=== PATIENT | female | born 1960 | race Caucasian/White ===

== ENCOUNTER 2021-06-04 12:22 | Emergency (ER) | payer BC ==
--- NOTE | 2021-06-04 13:57 | EDM.PDOC ---
ED HPI GENERAL MEDICAL PROBLEM - General Chief Complaint: Gastrointestinal Problem Stated Complaint: STOMACH PAIN,BLACK STOOL Time Seen by Provider: 06/04/21 13:34 Source of Information: Reports: Patient History Limitations: Reports: No Limitations - History of Present Illness INITIAL COMMENTS - FREE TEXT/NARRATIVE: HISTORY AND PHYSICAL: History of present illness: Patient is a 61-year-old female who presents to the emergency room with complaints of lower abdominal pain and black stools. She states yesterday she started to have some low abdominal pain/cramping and this morning had a bowel movement after 2 days of not having any. She felt somewhat constipated prior to having the bowel movement. When she noticed her stool was black she informed her family member who is a nurse. They recommended she come to the emergency room for evaluation. She continues to have some bilateral low abdominal discomfort which she describes as mild. Patient denies any fever, chills, headache, change in vision, syncope or near syncope. Denies any chest pain, back pain, shortness of breath or cough. Denies any abdominal pain, nausea, vomiting, diarrhea, constipation or dysuria. Has not noted any blood in urine or stool. Patient has been eating and drinking appropriately. No recent travel or sick contacts. Review of systems: As per history of present illness and below otherwise all systems reviewed and negative. Past medical history: As per history of present illness and as reviewed below otherwise noncontributory. Surgical history: As per history of present illness and as reviewed below otherwise noncontributory. Social history: See social history for further information Family history: As per history of present illness and as reviewed below otherwise noncont ributory. Physical exam: General: Well developed and well nourished. Alert and orientated x 3. Nontoxic in appearance and in no acute distress. Vital signs are stable and have been reviewed by me. Nursing notes were reviewed. HEENT: Atraumatic, normocephalic, pupils equal and reactive bilaterally, negative for conjunctival pallor or scleral icterus, mucous membranes moist, TMs normal bilaterally, throat clear, neck supple, nontender, trachea midline. No drooling or trismus noted. No meningeal signs. No hot potato voice noted. Lungs: Clear to auscultation bilaterally. No wheezes, rales, or rhonchi. Chest nontender. Normal work of breathing, no accessory muscles used. Heart: S1S2, regular rate and rhythm without overt murmur, gallops, or rubs. No JVD. No peripheral edema Abdomen: Soft, nondistended, nontender. Normoactive bowel sounds. Negative for masses or costovertebral tenderness. Pelvis: Stable nontender. Genitourinary/Rectal: External hemorrhoids are noted without bleeding. Good rectal tone. Patient does have dark-colored stool although Hemoccult negative. Patient tolerated well. Skin: Intact, warm, dry. No lesions or rashes noted. Hematologic: No petechiae or purpra. Mucosa appropriate color and normal nail bed color and refill. Extremities: Atraumatic, moves all extremities per self without difficulty or deficits, negative for cords or calf pain. Neurovascular unremarkable. Neuro: Awake, alert, oriented. Cranial nerves II through XII unremarkable. Cerebellum unremarkable. Motor and sensory unremarkable throughout. Exam nonfocal. Psychiatric: Mood and affect are appropriate. Normal thought process. Answering questions appropriately. Please note that the patient was seen and evaluated during the 2019 SARS-CoV-2 novel coronavirus pandemic period. Community viral transmission is ongoing at time of this encounter and the emergency department is operating under pandemic response procedures. Medical Decision Making: Patient is a 61-year-old female who presents to the emergency room with complaints of low abdominal pain and dark stool. She states initially she thought she was constipated as she has not had a bowel movement in 2 days. Today when she went it was dark in color and a family member was concerned it could be bloody. Physical exam reveals mild abdominal tenderness to lower quadrants bilaterally. Rectal exam is negative for Hemoccult. We will do basic lab work and possibly CT of abdomen and pelvis. Lab work is unremarkable. CT of the abdomen and pelvis shows and acute diverticulitis of the distal descending colon. No evidence of perforation. 4 mm pulmonary nodule right middle lobe. If patient is at high risk for malignancy consider follow-up chest CT in 12 months. I have talked with the patient about today's findings, in addition to providing specific details for plan of care. Patient feels she would do well at home as she has not had any fever, chills, severe abdominal pain, nausea or vomiting. Reassessment at the time of disposition demonstrates that the patient is in no acute distress. The patient is stable for discharge and counseling was provided. We discussed in great detail signs and symptoms that would prompt them to return to the Emergency Department (fevers, increased abdominal pain, unable to keep abx down, etc..). Medication, follow up and supportive care measures were reviewed and discussed. Voices understanding and is agreeable to plan of care. Denies any further questions or concerns at this time. Diagnostics: CBC, CMP, CT abd/pelvis Therapeutics: IV fluids Prescription: Augmentin TID, Zofran, Tramadol Impression: Diverticulitis Plan: 1. You were evaluated today on an emergent basis. Your lab work is within normal limits. Your CT scan shows an acute diverticulitis which will require treatment with antibiotics. There was an incidental finding of a 4 mm pulmonary nodule in your right middle lobe of your chest. If you are a high risk patient (smoker, familial history/person history of cancer) you should get a follow-up CT with your primary care provider. You can use Miralax to keep your stools soft and regular. At this time, your stool is dark in color, but tested negative for blood. Continue to monitor closely (black tarry, maroon, bright red) 2. You can alternate Tylenol and ibuprofen as needed for pain and fever management. 3. We encourage you to follow up with your primary care provider and/or recommended specialist in the next few days for re-evaluation and further care/management. 4. If your symptoms should worsen, new symptoms develop or any of the signs and symptoms we discussed should arise please return to the emergency room or call 911 (if needed). Definitive disposition and diagnosis as appropriate pending reevaluation and review of above. Left Upper Abdomen Pain Score (Numeric/FACES): 2 - Related Data Allergies Allergy/AdvReac Type Severity Reaction Status Date / Time codeine Allergy Vomiting Verified 06/04/21 13:37 Home Meds: Home Meds Amoxicillin/Clavulanate K [Augmentin 875-125 MG] 1 tab PO BID 10 Days #20 tablet 06/04/21 [Rx] Ondansetron [Zofran ODT] 4 mg PO Q6H PRN #8 tab.dis 06/04/21 [Rx] Propranolol [Inderal LA 24 Hr] 80 mg PO 06/04/21 [History] Rizatriptan Benzoate [Rizatriptan] 06/04/21 [History] traMADol [Ultram] 50 mg PO Q4H PRN #15 tab 06/04/21 [Rx] Social & Family History - Tobacco Use Second Hand Smoke Exposure: No - Caffeine Use Caffeine Use: Reports: None - Recreational Drug Use Recreational Drug Use: No ED ROS GENERAL - Review of Systems Review Of Systems: Comprehensive ROS is negative, except as noted in HPI. ED EXAM, GI/ABD - Physical Exam Exam: See Below (See dictation) Course - Vital Signs Last Recorded V/S: Last Vital Signs Temp 96.7 F L 06/04/21 13:32 Pulse 80 06/04/21 17:04 Resp 18 06/04/21 17:04 BP 130/79 06/04/21 17:04 Pulse Ox 96 06/04/21 17:04 - Orders/Labs/Meds Labs: Laboratory Tests 06/04/21 06/04/21 Range/Units 14:18 14:18 WBC 7.11 (4.0-11.0) K/uL RBC 4.06 L (4.30-5.90) M/uL Hgb 13.0 (12.0-16.0) g/dL Hct 37.5 (36.0-46.0) % MCV 92.4 (80.0-98.0) fL MCH 32.0 (27.0-32.0) pg MCHC 34.7 (31.0-37.0) g/dL RDW Std Deviation 47.4 (28.0-62.0) fl RDW Coeff of Melissa 14 (11.0-15.0) % Plt Count 210 (150-400) K/uL MPV 9.60 (7.40-12.00) fL Neut % (Auto) 44.8 L (48.0-80.0) % Lymph % (Auto) 41.9 H (16.0-40.0) % Lares % (Auto) 11.4 (0.0-15.0) % Eos % (Auto) 1.5 (0.0-7.0) % Baso % (Auto) 0.4 (0.0-1.5) % Neut # (Auto) 3.2 (1.4-5.7) K/uL Lymph # (Auto) 3.0 H (0.6-2.4) K/uL Lares # (Auto) 0.8 (0.0-0.8) K/uL Eos # (Auto) 0.1 (0.0-0.7) K/uL Baso # (Auto) 0.0 (0.0-0.1) K/uL Nucleated RBC % 0.0 /100WBC Nucleated RBCs # 0 K/uL Sodium 140 (136-145) mmol/L Potassium 4.4 (3.5-5.1) mmol/L Chloride 104 (98-107) mmol/L Carbon Dioxide 29.3 (21.0-32.0) mmol/L BUN 12 (7.0-18.0) mg/dL Creatinine 0.8 (0.6-1.0) mg/dL Est Cr Clr Drug Dosing 66.45 mL/min Estimated GFR (MDRD) > 60.0 ml/min Glucose 103 (74-106) mg/dL Calcium 9.1 (8.5-10.1) mg/dL Total Bilirubin 1.1 H (0.2-1.0) mg/dL AST 27 (15-37) IU/L ALT 42 (14-63) IU/L Alkaline Phosphatase 107 (46-116) U/L Total Protein 7.5 (6.4-8.2) g/dL Albumin 3.1 L (3.4-5.0) g/dL Globulin 4.4 H (2.6-4.0) g/dL Albumin/Globulin Ratio 0.7 L (0.9-1.6) Meds: Medications Discontinued Medications Generic Name Dose Route Start Last Admin Trade Name Freq PRN Reason Stop Dose Admin Amoxicillin/Clavulanate Potassium 1 tab 06/04/21 16:34 06/04/21 17:04 Amoxicillin/Clavulanate K 875-125 Mg Tab PO 06/04/21 16:35 1 tab ONETIME ONE Administration Departure - Departure Time of Disposition: 16:40 Disposition: Home, Self-Care 01 Clinical Impression: Diverticulitis - Discharge Information Prescriptions: Amoxicillin/Clavulanate K [Augmentin 875-125 MG] 1 tab PO BID 10 Days #20 tablet traMADol [Ultram] 50 mg PO Q4H PRN #15 tab PRN Reason: Pain Ondansetron [Zofran ODT] 4 mg PO Q6H PRN #8 tab.dis PRN Reason: Nausea Instructions: Diverticulitis, [id number] Referrals: El Matta MD [Primary Care Provider] - Forms: ED Department Discharge Additional Instructions: The following information is given to patients seen in the emergency department who are being discharged to home. This information is to outline your options for follow-up care. We provide all patients seen in our emergency department with a follow-up referral. The need for follow-up, as well as the timing and circumstances, are variable depending upon the specifics of your emergency department visit. If you don't have a primary care physician on staff, we will provide you with a referral. We always advise you to contact your personal physician following an emergency department visit to inform them of the circumstance of the visit and for follow-up with them and/or the need for any referrals to a consulting specialist. The emergency department will also refer you to a specialist when appropriate. This referral assures that you have the opportunity for follow-up care with a specialist. All of these measure are taken in an effort to provide you with optimal care, which includes your follow-up. Under all circumstances we always encourage you to contact your private physician who remains a resource for coordinating your care. When calling for follow-up care, please make the office aware that this follow-up is from your recent emergency room visit. If for any reason you are refused follow-up, please contact the [facility] Emergency Department at and asked to speak to the emergency department charge nurse. [facility] [address] [place] [id number] [id number] Thank you for choosing the [facility] emergency department in [place] for your medical needs today. It was a pleasure caring for you. Today you were seen in the emergency department for dark stools and abdominal pain. Your prescription was electronically sent to: [place] [facility] 1. You were evaluated today on an emergent basis. Your lab work is within normal limits. Your CT scan shows an acute diverticulitis which will require treatment with antibiotics. There was an incidental finding of a 4 mm pulmonary nodule in your right middle lobe of your chest. If you are a high risk patient (smoker, familial history/person history of cancer) you should get a follow-up CT with your primary care provider. You can use Miralax to keep your stools soft and regular. At this time, your stool is dark in color, but tested negative for blood. Continue to monitor closely (black tarry, maroon, bright red) 2. It is important that you do mostly full liquid diet and try for a low fiber while you are having pain. You can alternate Tylenol and ibuprofen as needed for pain and fever management. Tramadol for moderate to severe pain. This medication may cause drowsiness so do not take it while driving or needing to be functioning outside of the house. 3. We encourage you to follow up with your primary care provider and/or recommended specialist in the next few days for re-evaluation and further care/management. 4. If your symptoms should worsen, new symptoms develop or any of the signs and symptoms we discussed should arise please return to the emergency room or call 911 (if needed). Sepsis Event Note (ED) - Evaluation Sepsis Screening Result: No Definite Risk - Focused Exam Vital Signs: Vital Signs Temp Pulse Resp BP Pulse Ox 06/04/21 17:04 80 18 130/79 96 06/04/21 16:21 135/77 06/04/21 15:20 85 143/83 H 97 06/04/21 14:27 83 133/85 98 06/04/21 13:32 96.7 F L 83 20 133/85 97
[2021-06-04 14:52] LABS: BLOOD UREA NITROGEN,BUN 12 mg/dL (7.0-18.0); CARBON DIOXIDE,CO2 29.3 mmol/L (21.0-32.0); CHLORIDE,CL 104 mmol/L (98-107); GLUCOSE RANDOM 103 mg/dL (74-106); POTASSIUM,K 4.4 mmol/L (3.5-5.1); SODIUM,NA 140 mmol/L (136-145)
--- NOTE | 2021-06-04 16:25 | CT ---
HISTORY: Lower abdominal pain. Dark stools. TECHNIQUE: CT abdomen and pelvis with IV contrast. 100 mL Isovue 370 IV. COMPARISON: None. FINDINGS: Abdomen: No liver lesions. No bile duct dilation. No pancreatic mass or pancreatic duct dilation. No spleen lesions. No adrenal nodules. Kidneys enhance symmetrically. 1.4 cm cyst in the right kidney. Additional subcentimeter hypodense lesions in both kidneys are too small to characterize but are likely cysts. No hydronephrosis. Colonic diverticulosis. Wall thickening of the distal descending colon. Infiltration of pericolonic fat around the thickened segment of distal descending colon. No extraluminal gas or fluid collection. No dilated small or large bowel. No lymphadenopathy. Abdominal aorta is normal caliber. Pelvis: Uterus is absent. No lymphadenopathy. Musculoskeletal: Degenerative changes of the spine and sacroiliac joints. Lower chest: 4 mm noncalcified subpleural nodule in the right middle lobe (series 201, image 5). IMPRESSION: 1. Acute diverticulitis of the distal descending colon. No evidence of perforation. 2. 4 mm pulmonary nodule right middle lobe. If patient is at high risk for malignancy consider follow-up chest CT in 12 months. Please note that all CT scans at this facility use dose modulation, iterative reconstruction, and/or weight-based dosing when appropriate to reduce radiation dose to as low as reasonably achievable. Dictated by Jerry Shrestha MD @ 06/04/2021 4:22:35 PM (Electronically Signed)
[2021-06-04] MEDS ORDERED: Amoxicillin/Clavulanate K 875-125 MG Tab PO ONE (16:34)
[2021-06-04] MEDS ORDERED: Iopamidol 755 MG/ML 500 ML Multipack Bottle IVPUSH ONE (19:19)
== END 2021-06-04 17:08 | disposition home or self-care (01) ==
LOC: MW.ED 12:22
DX: K57.32 Diverticulitis of large intestine without perforation or abscess without bleeding (principal); Z88.5 Allergy status to narcotic agent
CPT/HCPCS: 74177; 80053; 85025; 99284; A9270; Q9967

== ENCOUNTER 2021-07-19 06:28 | Day surgery (SDC) | payer BC ==
[~2021-07-19 06:28] MED LIST: Lactated Ringers 1,000 ML IV SCH; Sodium Chloride 0.9% 10 ML Syringe FLUSH PRN; Sodium Chloride 0.9% 2.5 ML Syringe FLUSH PRN; Sodium Chloride 0.9% 20 ML SDV IV PRN
--- NOTE | 2021-07-19 07:09 | PCM.PREANE ---
Preanesthetic Assessment - Procedure Proposed Procedure: Colonoscopy - Anesthesia/Transfusion/Family Hx Anesthesia History: Prior Anesthesia Without Reaction Family History of Anesthesia Reaction: No Transfusion History: No Prior Transfusion(s) - Review of Systems General: No Symptoms Pulmonary: No Symptoms (Asthma with daily MDI) Cardiovascular: No Symptoms Gastrointestinal: No Symptoms Neurological: Headache (Daily propranolol to control Migraines) Other: Reports: None - Physical Assessment NPO Status Date: 07/18/21 NPO Status Time: 20:00 Vital Signs: Last Vital Signs Temp 97.7 F 07/19/21 06:35 Pulse 79 07/19/21 06:35 Resp 15 07/19/21 06:35 BP 145/88 H 07/19/21 06:35 Pulse Ox 96 07/19/21 06:35 Height: 5 ft 5 in Weight: 74.843 kg ASA Class: 2 Mental Status: Alert & Oriented x3 Airway Class: Mallampati = 3 Dentition: Reports: Normal Dentition Thyro-Mental Finger Breadths: 3 Mouth Opening Finger Breadths: 3 ROM/Head Extension: Full Lungs: Clear to Auscultation, Normal Respiratory Effort Cardiovascular: Regular Rate, Regular Rhythm - Allergies Allergies/Adverse Reactions: Allergies Allergy/AdvReac Type Severity Reaction Status Date / Time codeine Allergy Vomiting Verified 07/13/21 07:53 - Acknowledgements Anesthesia Type Planned: General Anesthesia Pt an Appropriate Candidate for the Planned Anesthesia: Yes Alternatives and Risks of Anesthesia Discussed w Pt/Guardian: Yes Pt/Guardian Understands and Agrees with Anesthesia Plan: Yes PreAnesthesia Questionnaire HEENT History: Reports: Allergic Rhinitis, Other (See Below) Other HEENT History: wears glasses, takes monthly allergy shots Cardiovascular History: Reports: None Respiratory History: Reports: Asthma, Other (See Below) Other Respiratory History: "borderline asthmatic" Gastrointestinal History: Reports: Other (See Below) Other Gastrointestinal History: diverticulitis Genitourinary History: Reports: Renal Calculus [employer] History: Reports: Endometriosis, Musculoskeletal History: Reports: Fracture Other Musculoskeletal History: hx fx neck (C6-C7), fx nose Neurological History: Reports: Head Trauma, Migraines Other Neuro History: hx fx neck Psychiatric History: Reports: None Endocrine/Metabolic History: Reports: None Hematologic History: Reports: None Immunologic History: Reports: None Oncologic (Cancer) History: Reports: None Dermatologic History: Reports: None - Past Surgical History Head Surgeries/Procedures: Reports: Other (See Below) HEENT Surgical History: Reports: Naso-Sinus Surgery Cardiovascular Surgical History: Reports: None Respiratory Surgical History: Reports: None GI Surgical History: Reports: Appendectomy Female Surgical History: Reports: Hysterectomy, Salpingo-Oophorectomy Endocrine Surgical History: Reports: None Neurological Surgical History: Reports: Other (See Below) Other Neurological Surgeries/Procedures: halo placement Musculoskeletal Surgical History: Reports: Other (See Below) Other Musculoskeletal Surgeries/Procedures:: hx halo placement for fx neck Oncologic Surgical History: Reports: None Dermatological Surgical History: Reports: Plastic Surgical Reconstruction/Repair, Other (See Below) - SUBSTANCE USE Tobacco Use Status *Q: Never Tobacco User Recreational Drug Use History: No - HOME MEDS Home Medications: Home Meds Propranolol [Inderal LA 24 Hr] 80 mg PO DAILY 06/04/21 [History] Rizatriptan Benzoate [Rizatriptan] 1 tab PO ASDIRECTED PRN 06/04/21 [History] Albuterol Sulfate [Albuterol Sulfate Hfa] 1 - 2 puff INH ASDIRECTED PRN 07/13/21 [History] Cholecalciferol (Vitamin D3) [Vitamin D3] 1,000 units PO DAILY 07/13/21 [History] Cyanocobalamin (Vitamin B12) [Vitamin B12] 1 tab PO DAILY 07/13/21 [History] Lactobacillus Combo No.10 [Probiotic] 1 tab PO DAILY 07/13/21 [History] Lutein/Minerals/Vit A,C & E [Ocuvite] 1 tab PO DAILY 07/13/21 [History] Nortriptyline HCl [Pamelor] 25 mg PO BEDTIME 07/13/21 [History] [place]-3/DHA/Epa/Fish Oil [Fish Oil 1,400 MG Softgel] 1 tab PO DAILY 07/13/21 [History] calcium polycarbophiL [Fiber Tabs] 1 tab PO DAILY 07/13/21 [History] - CURRENT (IN HOUSE) MEDS Current Meds: Current Medications Lactated Ringer's (Ringers, Lactated) 1,000 mls @ 125 mls/hr IV ASDIRECTED SERGIO Sodium Chloride (Sodium Chloride 0.9% 10 Ml Syringe) 10 ml FLUSH ASDIRECTED PRN PRN Reason: Keep Vein Open Sodium Chloride (Sodium Chloride 0.9% 2.5 Ml Syringe) 2.5 ml FLUSH ASDIRECTED PRN PRN Reason: Keep Vein Open Sodium Chloride (Sodium Chloride 0.9% 10 Ml Syringe) 10 ml FLUSH ASDIRECTED PRN PRN Reason: Keep Vein Open Sodium Chloride (Sodium Chloride 0.9% 2.5 Ml Syringe) 2.5 ml FLUSH ASDIRECTED PRN PRN Reason: Keep Vein Open Sodium Chloride (Sodium Chloride 0.9% 20 Ml Sdv) 10 ml IV ASDIRECTED PRN PRN Reason: IV Use
[2021-07-19] MEDS ORDERED: Propofol 200 MG/20 ML SDV ONE (07:24)
[2021-07-19] MEDS ORDERED: fentaNYL 100 MCG/2 ML SDV ONE (07:24)
--- NOTE | 2021-07-19 08:47 | PCM.OPNOTE ---
- General Post-Op/Procedure Note Date of Surgery/Procedure: 07/19/21 Operative Procedure(s): Diagnostic colonoscopy Findings: Diverticulosis, transverse polyp x 2 Pre Op Diagnosis: History of diverticulitis Post-Op Diagnosis: Diverticulosis, transverse colon polyp x 2 [place]est[place] [facility] [place] Surgeon: Pamella Hdez Condition: Good
--- NOTE | 2021-07-19 08:50 | PCM.POSTAN ---
POST ANESTHESIA ASSESSMENT - MENTAL STATUS Mental Status: Alert, Oriented - VITAL SIGNS Vital Signs: Last Vital Signs Temp 97.7 F 07/19/21 06:35 Pulse 79 07/19/21 06:35 Resp 15 07/19/21 06:35 BP 145/88 H 07/19/21 06:35 Pulse Ox 96 07/19/21 06:35 - RESPIRATORY Respiratory Status: Respiratory Rate WNL, Airway Patent, O2 Saturation Stable - CARDIOVASCULAR CV Status: Pulse Rate WNL, Blood Pressure Stable - GASTROINTESTINAL GI Status: No Symptoms - PAIN Pain Score: 0 - POST OP HYDRATION Hydration Status: Adequate & Stable
--- NOTE | 2021-07-19 08:54 | PCM48HPAN ---
Post Anesthesia Note - EVALUATION WITHIN 48HRS OF ANESTHETIC Vital Signs in Normal Range: Yes Patient Participated in Evaluation: Yes Respiratory Function Stable: Yes Airway Patent: Yes Cardiovascular Function Stable: Yes Hydration Status Stable: Yes Pain Control Satisfactory: Yes Nausea and Vomiting Control Satisfactory: Yes Mental Status Recovered: Yes Vital Signs: Last Vital Signs Temp 97.9 F 07/19/21 08:42 Pulse 67 07/19/21 08:51 Resp 16 07/19/21 08:51 BP 115/76 07/19/21 08:51 Pulse Ox 97 07/19/21 08:51 - COMMENTS/OBSERVATIONS Free Text/Narrative:: Pt doing well post-op. VSS. No apparent anesthetic complications. Dr. Santy Stevens
--- NOTE | 2021-07-19 18:48 | OR ---
SURGEON: PAMELLA HDEZ MD DATE OF PROCEDURE: 07/19/2021 PREOPERATIVE DIAGNOSIS: History of diverticulitis. POSTOPERATIVE DIAGNOSIS: 1. Diverticulosis. 2. Transverse colon polyps x2. PROCEDURE PERFORMED: Diagnostic colonoscopy with polypectomy. PRIMARY SURGEON: Pamella Hdez MD ANESTHESIA: General mask. INSTRUMENT USED: Olympus colonoscope. EXTENT OF THE EXAMINATION: To the cecum. PREPARATION: Good. LIMITATIONS: None. INDICATIONS FOR EXAMINATION: The patient is a 61-year-old female who had diverticulitis couple of months ago. The patient is now back to normal and is due for a diagnostic colonoscopy. I explained the procedure, expected perioperative course, and the risks. She verbalized understanding and wishes to proceed. PROCEDURE IN DETAIL: The patient was brought to the endoscopy suite and placed in the left lateral decubitus position. A time-out was completed verifying the patient's name, age, date of , allergies, and procedure to be performed. General mask anesthesia was induced, and continuous oxygen was provided via nasal cannula throughout the procedure. After adequate sedation was achieved, a digital rectal exam was performed. This exam revealed enlarged hemorrhoidal skin tags. A well-lubricated colonoscope was then inserted into the rectum and advanced under direct visualization to the level of the cecum. The cecum was identified by both visual and atomic landmarks. Photograph was taken of the cecal cap; however, I was unable to retroflex the scope within the cecum. The scope was then fully withdrawn while examining the color, texture, anatomy, and integrity of the mucosa from the cecum to the anal canal. In the proximal transverse colon, the patient was noted to have 2 sessile polyps. These were removed in piecemeal fashion using a cold biopsy forceps and sent to Pathology. I closely inspected the descending and sigmoid colon and did not see any diverticular disease. The scope was then brought into the rectum and retroflexed to allow visualization of the anal canal opening. This appeared normal, and a photograph was taken. The scope was then straightened out and fully withdrawn. The cecum to anus time was 20 minutes. The patient tolerated the procedure well and was transferred to the PACU in stable condition. ENDOSCOPIC DIAGNOSES: 1. Diverticulosis. 2. Transverse colon polyp x2. RECOMMENDATIONS: Follow up in clinic in 2 weeks. NEO / INES /[id number]
== END 2021-07-19 09:10 | disposition home or self-care (01) ==
LOC: MW.SDS 06:28
PROVIDERS: ATTEND Surgery
DX: D12.3 Benign neoplasm of transverse colon (principal); K57.30 Diverticulosis of large intestine without perforation or abscess without bleeding; K64.9 Unspecified hemorrhoids; M94.261 Chondromalacia, right knee; Z88.5 Allergy status to narcotic agent; Z79.899 Other long term (current) drug therapy; Z90.49 Acquired absence of other specified parts of digestive tract; Z98.890 Other specified postprocedural states
CPT/HCPCS: 45380; J2704; J3010; J7120; 00811

== ENCOUNTER 2022-02-20 09:20 | Emergency (ER) | payer BC ==
[2022-02-20 10:25] LABS: CARBON DIOXIDE,CO2 28.6 mmol/L (21.0-32.0); POTASSIUM,K 4.5 mmol/L (3.5-5.1)
== END 2022-02-20 10:58 | disposition home or self-care (01) ==
LOC: MW.ED 09:20
DX: K57.92 Diverticulitis of intestine, part unspecified, without perforation or abscess without bleeding (principal); Z79.899 Other long term (current) drug therapy; Z20.822 Contact with and (suspected) exposure to COVID-19
CPT/HCPCS: 36415; 80053; 81003; 83690; 85025; 99284; U0002